=== PATIENT | female | born 1985 | race Caucasian/White ===

== ENCOUNTER 2023-10-12 05:53 | Observation (INO) ==
--- NOTE | 2023-09-27 15:52 | Anesthesiology Consultation ---
Date of Service September 27, 2023 Assessment & Plan (1) Encounter for pre-operative examination: Plan - check urine test STAT am DOS. To anesthesiologist discretion if repeat CBC with diff is needed DOS. - Per credit assessment analyst on 09/27/2023: No known infectious disease contacts, current infectious disease symptoms in past 10 days or COVID positive test result in the past 30 days. Chart Review Chart Review: Acceptable Risk for Surgery and Patient NOT seen in Pre Admission Testing History Surgery Operation Date: 10/12/23 11:10 Proposed Procedures p Cystoscopy, Robotic Laparoscopy Removal of the Uterus and Both Fallopian Tubes, Possible Removal of one or both Ovaries (in Indicated) - Vimal Bess MD Height/Weight Height: 5 ft 4 in Weight: 95.254 kg Allergies Allergy/AdvReac Type Severity Reaction Status Date / Time aspirin Allergy Intermediate Hives Verified 09/27/23 14:40 [place] And Derivatives Allergy Intermediate Hives Verified 09/27/23 14:40 Penicillins Allergy Unknown WAS TOLD Verified 09/27/23 14:40 A CHILD Medications Home Medications Medication Instructions Recorded Confirmed Last Taken Medical Marijuana 1 dose inhalation UD PRN Anxiety 11/03/21 09/27/23 11/05/21 cholecalciferol (vitamin D3) 25 25 mcg PO DAILY 11/03/21 09/27/23 11/05/21 mcg (1,000 unit) capsule (Vitamin D3) multivitamin 1 tab PO DAILY 11/03/21 09/27/23 11/05/21 pantoprazole 40 mg tablet,delayed 40 mg PO DAILY #30 tabs 11/07/21 09/27/23 Unknown release Past Medical History Medical History Hx of ovarian cyst Von Willebrand disease follows / [facility] in [place] Iron deficiency anemia monthly infusions last infusion 08/2023 Anxiety Past Family History Family History Uncle Family hx of colon cancer Other No family history of adverse response to anesthesia Past Surgical History Surgical History Nausea and vomiting after administration of anesthetic agent History of laparoscopy History of cholecystectomy Social History Smoking Status: Former smoker tobacco type: cigarettes Do You Dip or Chew Tobacco: No Smoking End Date: quit yrs ago Hx Alcohol Use: No Hx Substance Use: Yes (medical marijuana -advised) substance use type: marijuana Last Used Substance Other:: 1 week ago
[2023-10-12] MEDS ORDERED: LR 15ML/HR IV SCH (06:00)
[2023-10-12 06:28] LABS: Basophils # (auto) 0.05 K/uL (0.00-0.20); Basophils % (auto) 0.8 %; Eosinophils # (auto) 0.25 K/uL (0.00-0.50); Eosinophils % (auto) 3.8 %; Hematocrit (blood only) 35.7 % (37.0-47.0); Hemoglobin 11.8 g/dl (12.0-16.0); Immature Granulocytes # (auto) 0.02 K/uL (0.01-0.20); Immature Granulocytes % (auto) 0.3 %; Lymphocytes # (auto) 2.11 K/uL (1.20-3.40); Lymphocytes % (auto) 32.5 %; Mean Corpuscular Hemoglobin 29.8 pg (25.0-34.0); Mean Corpuscular Hgb Conc 33.1 g/dL (32.0-36.0); Mean Corpuscular Volume 90.2 fL (80.0-100.0); Mean Platelet Volume 9.2 fL (9.4-12.4); Monocytes # (auto) 0.42 K/uL (0.11-0.59); Monocytes % (auto) 6.5 %; Neutrophils # (auto) 3.65 K/uL (1.40-6.50); Neutrophils % (auto) 56.1 %; Platelet Count 338 K/uL (130-400); RDW Coefficient of Variation 13.2 % (11.5-14.5); RDW Standard Deviation 44.2 fL (36.4-46.3); Red Blood Count 3.96 M/uL (4.20-5.40)
[2023-10-12] MEDS ORDERED: SCOPOLAMINE 1 MG TDSY TD ONE (06:34)
[2023-10-12] MEDS ORDERED: SCOPOLAMINE 1 MG TDSY TD SCH (06:45)
[2023-10-12] MEDS ORDERED: MIDAZOLAM HCL 1 MG/ML 2ML VIAL ONE (06:45)
[2023-10-12] MEDS ORDERED: fentaNYL citrate PF 100 MCG/2 ML VIAL ONE (06:46)
[2023-10-12] MEDS ORDERED: KETAMINE HCL 10MG/ML SYR ONE (07:02)
[2023-10-12] MEDS ORDERED: DexMEDEtomidine HCL IV 100 MCG/ML VIAL IV ONE (07:03)
[2023-10-12] MEDS ORDERED: ACETAMINOPHEN 1000 MG/100 ML IV IV ONE (07:03)
[2023-10-12] MEDS ORDERED: FAMOTIDINE/PF 20 MG/2 ML VIAL IV ONE (07:03)
[2023-10-12] MEDS ORDERED: DESMOPRESSIN ACETATE 20 MCG in SODIUM CHLORIDE 0.9% 50 ML IV STA (07:12)
--- NOTE | 2023-10-12 07:13 | History & Physical Bridge Note ---
Date of Service October 12, 2023 History & Physical Bridge Note I have examined the patient, reviewed the History & Physical and in the interval since the performance of the History & Physical I have noted the following changes of clinical significance: no changes noted
[2023-10-12] MEDS ORDERED: HYDROmorphone INJ 1 MG/ML SYRINGE IV PRN (07:18)
[2023-10-12] MEDS ORDERED: FLUMAZENIL 0.1 MG/1 ML 10 ML VIAL IV PRN (07:18)
[2023-10-12] MEDS ORDERED: ONDANSETRON INJ 2 MG/ML 2 ML VIAL IV PRN ×2 (07:18→10:09)
[2023-10-12] MEDS ORDERED: BUPIVACAINE 0.5 % 5 MG/1 ML MPF 30ML VIAL ONE (07:18)
[2023-10-12] MEDS ORDERED: ATROPINE SULFATE 0.1 MG/ML 10ML SYR IV PRN (07:18)
[2023-10-12] MEDS ORDERED: NALOXONE HCL 0.4 MG/1 ML VIAL/CARP IV PRN (07:18)
[2023-10-12] MEDS ORDERED: LABETALOL HCL IV 5 MG/ML 20ML IV PRN (07:18)
[2023-10-12] MEDS ORDERED: PROMETHAZINE HCL 12.5 MG in SODIUM CHLORIDE 0.9% 50 ML IV PRN (07:18)
[2023-10-12] MEDS ORDERED: ePHEDrine sulfate 50 MG/ML AMP IV PRN (07:18)
[2023-10-12] MEDS ORDERED: ROCURONIUM BROMIDE 10 MG/ML 5 ML VIAL IV ONE (08:29)
[2023-10-12] MEDS ORDERED: ONDANSETRON INJ 2 MG/ML 2 ML VIAL ONE (08:29)
[2023-10-12] MEDS ORDERED: DEXAMETHASONE SOD INJ 4 MG/ML VIAL ONE (08:29)
[2023-10-12] MEDS ORDERED: LIDOCAINE 2% 2 ML VIAL/AMP(20MG/ML) INFIL ONE (08:29)
[2023-10-12] MEDS ORDERED: PROPOFOL IV EMULSION 10 MG/ML 20 ML VIAL IV ONE (08:29)
[2023-10-12] MEDS ORDERED: SODIUM CHLORIDE 0.9% PF INJ 10 ML VIAL ONE (08:29)
[2023-10-12] MEDS ORDERED: ceFAZolin 2000MG 2,000 MG/15 ML SYR IV ONE (08:50)
[2023-10-12] MEDS ORDERED: SUGAMMADEX SODIUM 200 MG/2 ML VIAL IV ONE (09:57)
[2023-10-12] MEDS ORDERED: ACETAMINOPHEN 325 MG TAB PO PRN (10:09)
[2023-10-12] MEDS ORDERED: oxyCODONE/ACETAMINOPHEN 5mg/325mg TAB PO PRN (10:09)
[2023-10-12] MEDS ORDERED: KETOROLAC 30 MG/ML VIAL IV PRN (10:09)
[2023-10-12] MEDS ORDERED: IBUPROFEN 600 MG TAB PO PRN (10:09)
--- NOTE | 2023-10-12 10:23 | Post Operative Brief Note ---
PG Immediate Post Op with CF Date of Surgery October 12, 2023 Pre & Post Diagnosis Operation Date: 10/12/23 07:30 Pre-Op Diagnosis: Abnormal Uterine Bleeding, Iron Deficiency Anemia Post-Op Diagnosis: Abnormal Uterine Bleeding, Iron Deficiency Anemia I identified the patient and participated in the time-out.: Yes Procedure Operation Date: 10/12/23 07:30 Actual Procedures p Robotic Assisted Laparoscopy Removal of the Uterus and Both Fallopian Tubes, Cystoscopy(Not Applicable) - Vimal Bess MD Surgeon Vimal Bess MD Training Project Manager OR staff Estimated Blood Loss 15 Findings Consistent with Post-Op Diagnosis Specimens Specimen Description: A: Cervix, Uterus, Bilateral Fallopian Tubes LITHOGRAPH PRESS OPERATOR TINWARE Major Procedure Codes Hysterectomy 69390 TLH <250g +S/O
--- NOTE | 2023-10-12 10:47 | Operative Report ---
PG Post Operative Report Pre & Post Diagnosis Operation Date: 10/12/23 07:30 Pre-Op Diagnosis: Abnormal Uterine Bleeding, Iron Deficiency Anemia Post-Op Diagnosis: Abnormal Uterine Bleeding, Iron Deficiency Anemia I identified the patient and participated in the time-out.: Yes Procedure Operation Date: 10/12/23 07:30 Actual Procedures p Robotic Assisted Laparoscopy Removal of the Uterus and Both Fallopian Tubes, Cystoscopy(Not Applicable) - Vimal Bess MD Surgeon Vimal Bess MD Automobile Locator OR staff Estimated Blood Loss 15 Findings Consistent with Post-Op Diagnosis Specimens Uterus, cervix and fallopian tubes Description of Procedure The patient was taken to the operating room after consents were assured. Upon presentation was properly identified. General endotracheal anesthesia was obtained without difficulty. The patient was then prepped and draped in normal sterile fashion. Preprocedural time-out was performed. A Preston catheter was then placed followed by a [employer] uterine manipulator per coiled tubing operator's specifications. The laparoscopic portion of the case was initiated. An 8-mm incision was made in the superior umbilicus and a Veress needle was inserted through the incision into the abdomen an opening pressure of 6 mmHg was noted. There was noted to be symmetric abdominal rise and tympany over the liver, all consistent with appropriate intraabdominal insufflation. An 8-mm optically guided trocar was introduced through the incision into the abdomen with immediate inspection notable for atraumatic entry. Ports were then placed at right and left lower quadrants under direct visualization with atraumatic entry noted. The robot was then docked and the robotic portion of the case was initiated. The fallopian tubes were dissected from the mesosalpinx. The left round ligament was identified, serially cauterized, and dissected. The left utero-ovarian ligament was then identified serially cauterized and dissected. The dissection plain was carried back to the level of the prior dissected round ligament. Bladder flap was then initiated anteriorly on the left side and transitioning towards the right. The broad ligament was then dissected skeletonizing the left uterine vessels. The right fallopian tube was then grasped and dissected off the mesosalpinx. The right round ligament was identified, serially cauterized, and dissected. The right uteroovarian ligament was then identified, serially cauterized, and dissected back to the prior dissected round ligament. The bladder flap was then continued anteriorly from the right connecting with the prior dissected bladder flap from the left. The bladder was then dissected off the lower uterine segment and cervix. The right broad ligament was then dissected skeletonizing the right uterine vessels. The bilateral uterine vessels were then serially cauterized and dissected. The colpotomy was then initiated anteriorly and continued circumferentially around the cervix freeing the cervix from the underlying vaginal mucosa. The uterus was then brought through the vaginal cuff and the vaginal cuff was reapproximated with V-Loc suture in continuous running stitch. An airtight seal and good hemostasis noted. A cystoscopy was performed with intact bladder and bilateral ureteral efflux. Tisseel was then placed over all vascular pedicles and raw edges. Decision was made to end the laparoscopic portion of the case. Abdomen was desufflated and trocars removed. The incisions were reapproximated with 3-0 Vicryl in a single interrupted stitch. Dermabond placed on top. 10 mL of lidocaine were distributed throughout the 3 incisions. The patient was then awoken from anesthesia and taken to recovery room in stable condition. Needle, sponge, and instrument counts were correct x2 at the completion of the case. I attest to the content of the Intraoperative Record and any orders documented therein. Any exceptions are noted below. CRUSHER AND BINDER OPERATOR Major Procedure Codes Hysterectomy 75645 TLH <250g +S/O
[2023-10-12] MEDS: fentaNYL citrate PF 100 MCG/2 ML VIAL IV PRN ×2 (10:50→10:55)
--- NOTE | 2023-10-12 11:14 | Anesthesiology Progress Note ---
Date of Service October 12, 2023 Anesthesia Post Procedure Vital Signs Vital Signs: Temp Pulse Resp BP BP Pulse Ox O2 Del Method 10/12/23 11:10 37.1 C 68 20 133/81 98 Nasal Cannula 10/12/23 11:00 60 14 131/85 100 Nasal Cannula 10/12/23 10:50 72 24 135/86 93 Room Air 10/12/23 10:40 74 22 124/86 93 Room Air 10/12/23 10:30 79 17 129/85 100 Oxymask 10/12/23 10:20 36.3 C L 88 21 124/71 99 Oxymask 10/12/23 06:23 36.7 C 69 20 128/74 99 Room Air O2 Flow Rate 10/12/23 11:10 2 10/12/23 11:00 2 10/12/23 10:50 10/12/23 10:40 10/12/23 10:30 6 10/12/23 10:20 6 10/12/23 06:23 Transfer of Care Handoff Completed per policy Notes Mental Status: alert / awake / arousable Patient Amnestic to Procedure: Yes Nausea / Vomiting: adequately controlled Pain: adequately controlled Airway Patency, RR, SpO2: stable & adequate BP & HR: stable & adequate Hydration State: stable & adequate Anesthetic Complications: no major complications apparent
[2023-10-12] MEDS: SIMETHICONE 80 MG CHEW PO PRN (13:13)
[2023-10-12] MEDS: oxyCODONE/ACETAMINOPHEN 5mg/325mg TAB PO PRN ×2 (15:30→19:47)
[2023-10-12] MEDS: CHECK SCOPOLAMINE PATCH PLACEMENT SCH (19:46)
[2023-10-13] MEDS: oxyCODONE/ACETAMINOPHEN 5mg/325mg TAB PO PRN ×2 (00:31→06:46)
[2023-10-13] MEDS: SIMETHICONE 80 MG CHEW PO PRN (08:36)
[2023-10-13] MEDS: CHECK SCOPOLAMINE PATCH PLACEMENT SCH (08:36)
--- NOTE | 2023-10-13 09:59 | Gynecologic Progress Note ---
Date of Service October 13, 2023 Assessment & Plan (1) Encounter for postoperative care: Plan: Sarina is a 38-year-old day 1 status post total laparoscopic hysterectomy. Doing well today. Stable for discharge. Postoperative precautions reviewed in detail and all questions answered. Admission and Anticipated Discharge Date Admission Date: October 12, 2023 Subjective Day 1 status post total laparoscopic hysterectomy. Patient doing well without any concerns. No acute events overnight. Denies calf tenderness Physical Exam Gastrointestinal (Abdomen): Inspection/Auscultation: abdomen normal to inspection Percussion/Palpation: abdomen soft; abdomen nontender, no guarding and abdomen not rigid Results & Data Vital Signs (Past 12 Hours) Vital Signs Temp Pulse Resp BP Pulse Ox O2 Del Method 10/13/23 08:31 36.7 C 73 14 115/78 96 Room Air 10/13/23 05:00 36.7 C 66 18 122/68 96 Room Air 10/13/23 00:35 36.8 C 61 18 132/83 96 Room Air PG Care Time/CCT Total # of Minutes Spent Total Time Spent with Patient: Total time spent is greater than 50% in coordination of care (as documented) at patient's floor/unit and/or counseling patient: Coding Level of Care Code 46711 Post Operative Follow-Up Diagnoses Encounter for postoperative care Z48.89
[2023-10-15] MEDS ORDERED: LACTATED RINGER'S 1,000 ML IV SCH (06:00)
== END 2023-10-13 10:35 | disposition home or self-care (01) ==
LOC: 4E1 05:53 → ASU 05:53